=== PATIENT | female | born 1995 | race Two or more races ===

== ENCOUNTER 2024-11-08 17:12 | Inpatient (IN) | payer OTHER ==
[~2024-11-08] VITALS: Ht 165.1 cm; Wt 100.2 kg
[2024-11-08] MEDS ORDERED: ONDANSETRON HCL/PF 4 MG/2 ML VIAL ONE (17:18)
[2024-11-08] MEDS: ONDANSETRON HCL/PF - ER 4 MG/2 ML VIAL IV ONE (17:22)
[2024-11-08 17:40] LABS: RED BLOOD CELL COUNT(AUTO) 2.04 MIL/uL (4.0-5.2); RED CELL DISTRIBUTION WIDTH 20.8 % (11.5-15.0); WHITE BLOOD COUNT (AUTO) 10.1 K/uL (4.3-11.0)
[2024-11-08 17:49] LABS: CALCIUM, SERUM 7.5 mg/dL (8.5-10.1); CREATININE 0.6 mg/dL (0.6-1.3); SODIUM SERUM 142 mmol/L (136-145); UREA NITROGEN, BLOOD 1 mg/dL (7-18)
[2024-11-08 17:51] LABS: SERUM AMMONIA 52 umol/L (11-32)
[2024-11-08 18:00] LABS: ALCOHOL, BLOOD 330 mg/dL (0-10); ASPARTATE AMINOTRANSFERASE 136 U/L (15-37); TOTAL PROTEIN, SERUM 6.3 g/dL (6.4-8.2)
[2024-11-08 18:12] LABS: PLATELET COUNT (AUTO) 94 K/uL (150-450)
[2024-11-08 18:16] LABS: BAND % (MANUAL) 3 % (0.0-5.0); EOSINOPHILS % (MANUAL) 1 % (0-4); LYMPHOCYTES % (MANUAL) 11 % (16-48); MONOCYTES % (MANUAL) 4 % (0-11.0); NEUTROPHILS % (MANUAL) 81 (42-76)
[2024-11-08 18:25] LABS: INR > 10.00 (0.91-1.10)
[2024-11-08] MEDS ORDERED: OCTREOTIDE 1,250 MCG in IV NS 0.9% 250 ML IV ONE (18:30)
[2024-11-08] MEDS ORDERED: POTASSIUM CL. PREMIX PERIPHER. 50 ML ONE ×3 (18:33→20:43)
[2024-11-08] MEDS ORDERED: OCTREOTIDE 50 MCG/ML AMPUL ONE (18:34)
[2024-11-08] MEDS: POTASSIUM CL. PREMIX PERIPHER. 50 ML IV SCH (18:47)
[2024-11-08] MEDS: OCTREOTIDE 50 MCG/ML AMPUL IV ONE (18:48)
[2024-11-08] MEDS: PANTOPRAZOLE 80 MG in IV NS 0.9% 100 ML IV ONE (19:07)
[2024-11-08] MEDS ORDERED: ONDANSETRON HCL/PF 4 MG/2 ML VIAL IVP PRN (19:30)
[2024-11-08] MEDS ORDERED: Z GUARD REMEDY 4 OZ OINT TP PRN (19:30)
[2024-11-08] MEDS: PANTOPRAZOLE 80 MG in IV NS 0.9% 500 ML IV ONE (19:30)
[2024-11-08] MEDS: OCTREOTIDE 1,250 MCG in IV NS 0.9% 247.5 ML IV SCH (19:33)
[2024-11-08] MEDS ORDERED: PHYTONADIONE INJ 1 MG/0.5 ML AMPUL ONE (19:39)
[2024-11-08] MEDS: PHYTONADIONE INJ 1 MG/0.5 ML AMPUL SQ ONE (19:45)
[2024-11-08 20:44] LABS: APPEARANCE,URINE SLIGHTLY CLOUDY (CLEAR); BLOOD, URINE 1+ Ery/uL (NEGATIVE); LEUKOCYTE ESTERASE ,URINE NEGATIVE (NEGATIVE); NITRITE, URINE POSITIVE (NEGATIVE); UGLUCOSE TRACE mg/dL (NEGATIVE)
[2024-11-08 20:49] LABS: PREGNANCY TEST URINE QUAL NEGATIVE (NEGATIVE)
[2024-11-08 20:53] LABS: ADD URINE CULTURE YES; SQUAMOUS EPITHELIAL CELL,UR 0-2 /HPF (None Seen)
[2024-11-08 20:54] LABS: COARSE GRANULAR CASTS,URINE Few /LPF (None Seen)
[2024-11-08] MEDS ORDERED: LORAZEPAM INJ 2 MG/ML VIAL ONE (20:54)
[2024-11-08] MEDS: LORAZEPAM INJ 2 MG/ML VIAL IV PRN (20:58)
[2024-11-08 20:59] LABS: AMPHETAMINE, URINE NEGATIVE (NEGATIVE); CANNABINOID, URINE NEGATIVE (NEGATIVE); COCCAINE, URINE NEGATIVE (NEGATIVE); OPIATE, URINE NEGATIVE (NEGATIVE)
[2024-11-08 21:00] LABS: BARBITURATE, URINE POSITIVE (NEGATIVE); BENZODIAZEPINE, URINE POSITIVE (NEGATIVE)
[2024-11-08 21:35] VITALS: BP 107/51; O2SAT 99
[2024-11-08] MEDS: IV D5/ 0.9% NACL 1,000 ML IV PRN (21:37)
[2024-11-08 22:00] VITALS: BP 111/44; O2SAT 100
[2024-11-08 23:00] VITALS: BP 104/44; O2SAT 99
[2024-11-08] MEDS: PANTOPRAZOLE 40 MG VIAL ONE (23:43)
[2024-11-08] MEDS ORDERED: OCTREOTIDE 500 MCG/ML VIAL ONE ×2 (23:50→23:53)
[2024-11-09] VITALS (42 sets, daily range): BP systolic 92–150; BP diastolic 47–73; TEMP 97.8–99.8; O2SAT 93–100
[2024-11-09] MEDS: Thiamine 100 MG in IV D5W 50 ML IV SCH (00:36)
[2024-11-09] MEDS: OCTREOTIDE 1,250 MCG in IV NS 0.9% 247.5 ML IV SCH ×2 (01:14→09:11)
[2024-11-09 04:57] LABS: CALCIUM, SERUM 7.7 mg/dL (8.5-10.1); CREATININE 0.6 mg/dL (0.6-1.3); PHOSPHORUS 3.7 mg/dL (2.5-4.9); SODIUM SERUM 143.0 mmol/L (136-145); UREA NITROGEN, BLOOD 2.0 mg/dL (7-18)
[2024-11-09 05:07] LABS: PLATELET COUNT (AUTO) 84 K/uL (150-450); RED CELL DISTRIBUTION WIDTH 21.9 % (11.5-15.0); WHITE BLOOD COUNT (AUTO) 8.1 K/uL (4.3-11.0)
[2024-11-09 05:15] LABS: RED BLOOD CELL COUNT(AUTO) 1.95 MIL/uL (4.0-5.2)
[2024-11-09] MEDS: PANTOPRAZOLE 80 MG in IV NS 0.9% 500 ML IV PRN (05:22)
[2024-11-09 05:40] LABS: EOSINOPHILS % (MANUAL) 1 % (0-4); LYMPHOCYTES % (MANUAL) 21 % (16-48); MONOCYTES % (MANUAL) 6 % (0-11.0); NEUTROPHILS % (MANUAL) 72 (42-76); PLATELET ESTIMATE DECREASED
[2024-11-09 05:49] LABS: INR > 10.00 (0.91-1.10)
[2024-11-09] MEDS: PANTOPRAZOLE 80 MG in IV NS 0.9% 500 ML IV SCH (06:27)
[2024-11-09] MEDS ORDERED: PHYTONADIONE IV ONE (07:00)
[2024-11-09] MEDS ORDERED: D5W IV ONE (07:00)
[2024-11-09] MEDS: POTASSIUM CL. PREMIX PERIPHER. 50 ML IV SCH (08:44)
[2024-11-09] MEDS: PHYTONADIONE INJ 10 MG/1 ML AMPUL SQ ONE (08:46)
[2024-11-09] MEDS: CEFTRIAXONE 1 G in IV D5W 50 ML IV SCH (09:10)
[2024-11-09 10:12] LABS: IRON, SERUM 95 ug/dl (50-175)
[2024-11-09] MEDS ORDERED: PHYTONADIONE 10 MG in IV D5W 50 ML SQ ONE (15:30)
[2024-11-09] MEDS: PANTOPRAZOLE 40 MG VIAL IV SCH (21:09)
[2024-11-10] VITALS (57 sets, daily range): BP systolic 84–155; BP diastolic 53–83; TEMP 97.9–99.3; O2SAT 97–100
[2024-11-10] MEDS ORDERED: LACTULOSE 10 G/15 ML UDC (PYXIS) PO PRN (09:00)
[2024-11-10] MEDS: LACTULOSE 10 G/15 ML UDC (PYXIS) PO SCH (09:18)
[2024-11-10] MEDS: RIFAXIMIN 550 MG TABLET PO SCH (09:18)
[2024-11-10 10:26] LABS: SERUM AMMONIA 60.0 umol/L (11-32)
[2024-11-10 10:27] LABS: RED CELL DISTRIBUTION WIDTH 21.7 % (11.5-15.0); WHITE BLOOD COUNT (AUTO) 6.7 K/uL (4.3-11.0)
[2024-11-10 10:29] LABS: RED BLOOD CELL COUNT(AUTO) 1.68 MIL/uL (4.0-5.2)
[2024-11-10 10:30] LABS: ASPARTATE AMINOTRANSFERASE 114.0 U/L (15-37); TOTAL PROTEIN, SERUM 5.9 g/dL (6.4-8.2)
[2024-11-10 10:31] LABS: PLATELET COUNT (AUTO) 81 K/uL (150-450)
[2024-11-10 10:40] LABS: INR 1.93 (0.91-1.10)
[2024-11-10 10:45] LABS: FIBRINOGEN ACTIVITY 61.0 Mg/dL (213-485); LYMPHOCYTES % (MANUAL) 15 % (16-48); MONOCYTES % (MANUAL) 7 % (0-11.0); NEUTROPHILS % (MANUAL) 78 (42-76)
[2024-11-10 10:46] LABS: PLATELET ESTIMATE DECREASED
[2024-11-10] MEDS: FOLIC ACID 1 MG TABLET PO SCH (12:15)
[2024-11-10] MEDS: ACETAMINOPHEN 325 MG TABLET PO ONE (12:16)
[2024-11-10 12:19] LABS: RHEUMATOID FACTOR SCREEN POSITIVE (NEGATIVE)
[2024-11-11] VITALS (13 sets, daily range): BP systolic 118–131; BP diastolic 64–73; TEMP 98.1–99.9; O2SAT 95–98
[2024-11-11 04:08] LABS: HEPATITIS B CORE AB, IgM Negative (Negative); HEPATITIS B SURFACE AB (QUAL) Reactive (.); IMMUNOGLOBULIN A, SERUM 693 mg/dL (87-352); IMMUNOGLOBULIN M, SERUM 417 mg/dL (26-217)
[2024-11-11 06:10] LABS: FREE KAPPA LT CHAINS SERUM 34.9 mg/L (3.3-19.4); FREE LAMBDA LT CHAIN SERUM 39.9 mg/L (5.7-26.3); KAPPA/LAMBDA RATIO SERUM 0.87 (0.26-1.65)
[2024-11-11 08:07] LABS: FOLIC ACID 5.2 ng/mL (>3.0)
[2024-11-11] MEDS: LACTULOSE 10 G/15 ML UDC (PYXIS) PO SCH (09:09)
[2024-11-11 09:41] LABS: PLATELET COUNT (AUTO) 80 K/uL (150-450); RED CELL DISTRIBUTION WIDTH 27.6 % (11.5-15.0); WHITE BLOOD COUNT (AUTO) 5.7 K/uL (4.3-11.0)
[2024-11-11 09:50] LABS: RED BLOOD CELL COUNT(AUTO) 1.98 MIL/uL (4.0-5.2)
[2024-11-11 10:05] LABS: EOSINOPHILS % (MANUAL) 2 % (0-4); LYMPHOCYTES % (MANUAL) 18 % (16-48); MONOCYTES % (MANUAL) 6 % (0-11.0); NEUTROPHILS % (MANUAL) 74 (42-76); PLATELET ESTIMATE DECREASED
[2024-11-11 10:06] LABS: INR 2.15 (0.91-1.10)
[2024-11-11 10:11] LABS: *ANA ANTI-CENTROMERE B AB <0.2 AI (0.0-0.9); *ANA ANTI-DNA(DS) AB, QN 4 IU/mL (0-9); *ANA ANTI-JO-1 <0.2 AI (0.0-0.9); *ANA ANTICHROMATIN ANTIBODY <0.2 AI (0.0-0.9); *ANA RNP ANTIBODIES 0.2 AI (0.0-0.9); *ANA SJOGREN'S ANTI-SS-A <0.2 AI (0.0-0.9); *ANA SJOGREN'S ANTI-SS-B <0.2 AI (0.0-0.9); *ANAANTI-SCLERODERMA-70 AB <0.2 AI (0.0-0.9); *ANASMITH AB <0.2 AI (0.0-0.9)
[2024-11-11 10:13] LABS: ASPARTATE AMINOTRANSFERASE 101.0 U/L (15-37); CALCIUM, SERUM 7.4 mg/dL (8.5-10.1); CREATININE 0.6 mg/dL (0.6-1.3); SODIUM SERUM 145.0 mmol/L (136-145); TOTAL PROTEIN, SERUM 5.6 g/dL (6.4-8.2); UREA NITROGEN, BLOOD 2.0 mg/dL (7-18)
[2024-11-11 10:14] LABS: FIBRINOGEN ACTIVITY 100.0 Mg/dL (213-485)
[2024-11-11] MEDS: THIAMINE HCL 100 MG TABLET PO SCH (10:21)
[2024-11-11] MEDS: Calcium Gluconate 1GM/10ML 9.3 MEQ in IV NS 0.9% 100 ML IV ONE (11:47)
[2024-11-11] MEDS: POTASSIUM CL. PREMIX PERIPHER. 50 ML IV SCH (12:27)
[2024-11-11] MEDS: LORAZEPAM 1 MG TABLET PO PRN (18:16)
[2024-11-11 23:16] LABS: OCCULT BLOOD STOOL NEGATIVE (NEGATIVE)
[2024-11-12] VITALS: BP 136/71; TEMP 99.5; O2SAT 96
[2024-11-12 04:00] VITALS: BP 132/69; TEMP 98.8; O2SAT 97
[2024-11-12 06:46] LABS: PLATELET COUNT (AUTO) 78 K/uL (150-450); RED CELL DISTRIBUTION WIDTH 28.3 % (11.5-15.0); WHITE BLOOD COUNT (AUTO) 5.9 K/uL (4.3-11.0)
[2024-11-12 07:00] LABS: ASPARTATE AMINOTRANSFERASE 94.0 U/L (15-37); CALCIUM, SERUM 7.9 mg/dL (8.5-10.1); CREATININE 0.6 mg/dL (0.6-1.3); PHOSPHORUS 2.0 mg/dL (2.5-4.9); SODIUM SERUM 145.0 mmol/L (136-145); TOTAL PROTEIN, SERUM 5.7 g/dL (6.4-8.2); UREA NITROGEN, BLOOD 2.0 mg/dL (7-18)
[2024-11-12 07:03] LABS: FIBRINOGEN ACTIVITY 131.0 Mg/dL (213-485); INR 2.37 (0.91-1.10)
[2024-11-12 07:29] LABS: RED BLOOD CELL COUNT(AUTO) 1.91 MIL/uL (4.0-5.2)
[2024-11-12] MEDS ORDERED: POTASSIUM PHOSPHATE MM 15 MMOL in IV NS 0.9% 250 ML IV SCH (09:00)
[2024-11-12] MEDS: POTASSIUM PHOSPHATE MM 7.5 MMOL in IV NS 0.9% 100 ML IV SCH (09:29)
[2024-11-12] MEDS: CYANOCOBALAMIN 1,000 MCG/ML VIAL IM SCH (09:43)
[2024-11-12 12:27] LABS: EOSINOPHILS % (MANUAL) 1 % (0-4); LYMPHOCYTES % (MANUAL) 15 % (16-48); MONOCYTES % (MANUAL) 6 % (0-11.0); NEUTROPHILS % (MANUAL) 78 (42-76); PLATELET ESTIMATE DECREASED
[2024-11-12 13:29] VITALS: BP 134/68; TEMP 99.1; O2SAT 95
[2024-11-12 16:00] VITALS: BP 117/63; TEMP 97.1; O2SAT 96
[2024-11-12 20:00] VITALS: BP 130/67; TEMP 97.9; O2SAT 97
[2024-11-12] MEDS: LACTULOSE 10 G/15 ML UDC (PYXIS) PO SCH (20:11)
[2024-11-12] MEDS: RIFAXIMIN 550 MG TABLET PO SCH (20:14)
[2024-11-13] VITALS: BP 130/69; TEMP 99.3; O2SAT 98
[2024-11-13 04:00] VITALS: BP 126/73; TEMP 98.4; O2SAT 97
[2024-11-13 06:31] LABS: ASPARTATE AMINOTRANSFERASE 87.0 U/L (15-37); CALCIUM, SERUM 7.4 mg/dL (8.5-10.1); CREATININE 0.6 mg/dL (0.6-1.3); PHOSPHORUS 1.5 mg/dL (2.5-4.9); SODIUM SERUM 142.0 mmol/L (136-145); TOTAL PROTEIN, SERUM 5.3 g/dL (6.4-8.2); UREA NITROGEN, BLOOD 2.0 mg/dL (7-18)
[2024-11-13 06:40] LABS: PLATELET COUNT (AUTO) 84 K/uL (150-450); RED CELL DISTRIBUTION WIDTH 28.4 % (11.5-15.0); WHITE BLOOD COUNT (AUTO) 6.4 K/uL (4.3-11.0)
[2024-11-13 06:45] LABS: INR 2.71 (0.91-1.10)
[2024-11-13 06:47] LABS: FIBRINOGEN ACTIVITY 103.0 Mg/dL (213-485)
[2024-11-13 06:59] LABS: RED BLOOD CELL COUNT(AUTO) 1.89 MIL/uL (4.0-5.2)
[2024-11-13 08:00] VITALS: BP 129/71; TEMP 98.8; O2SAT 96
[2024-11-13] MEDS: POTASSIUM PHOSPHATE MM 7.5 MMOL in IV NS 0.9% 100 ML IV SCH (09:47)
[2024-11-13] MEDS ORDERED: POTASSIUM CHLORIDE 20 MEQ TAB.PRT.SR PO SCH (10:00)
[2024-11-13 10:48] LABS: LYMPHOCYTES % (MANUAL) 15 % (16-48); MONOCYTES % (MANUAL) 3 % (0-11.0); NEUTROPHILS % (MANUAL) 82 (42-76); PLATELET ESTIMATE DECREASED
[2024-11-13 12:00] VITALS: BP 132/68; TEMP 99; O2SAT 97
[2024-11-13 16:00] VITALS: BP 115/63; TEMP 98.4; O2SAT 98
[2024-11-13 20:00] VITALS: BP 133/72; TEMP 98.6; O2SAT 99
[2024-11-14] VITALS (21 sets, daily range): BP systolic 117–133; BP diastolic 60–97; TEMP 98–99.9; O2SAT 96–99
[2024-11-14 07:33] LABS: PLATELET COUNT (AUTO) 91 K/uL (150-450); RED CELL DISTRIBUTION WIDTH 28.2 % (11.5-15.0); WHITE BLOOD COUNT (AUTO) 6.1 K/uL (4.3-11.0)
[2024-11-14 07:37] LABS: RED BLOOD CELL COUNT(AUTO) 1.82 MIL/uL (4.0-5.2)
[2024-11-14 07:42] LABS: FIBRINOGEN ACTIVITY 123.0 Mg/dL (213-485); INR 2.53 (0.91-1.10)
[2024-11-14 08:02] LABS: ASPARTATE AMINOTRANSFERASE 81.0 U/L (15-37); CALCIUM, SERUM 7.2 mg/dL (8.5-10.1); CREATININE 0.6 mg/dL (0.6-1.3); PHOSPHORUS 1.9 mg/dL (2.5-4.9); SODIUM SERUM 142.0 mmol/L (136-145); TOTAL PROTEIN, SERUM 5.4 g/dL (6.4-8.2); UREA NITROGEN, BLOOD 1.0 mg/dL (7-18)
[2024-11-14] MEDS: POTASSIUM PHOSPHATE MM 7.5 MMOL in IV NS 0.9% 100 ML IV SCH (10:03)
[2024-11-14] MEDS: Calcium Gluconate 1GM/10ML 9.3 MEQ in IV NS 0.9% 100 ML IV ONE (10:03)
[2024-11-14 10:13] LABS: EOSINOPHILS % (MANUAL) 2 % (0-4); LYMPHOCYTES % (MANUAL) 25 % (16-48); MONOCYTES % (MANUAL) 8 % (0-11.0); NEUTROPHILS % (MANUAL) 65 (42-76)
[2024-11-14 10:14] LABS: PLATELET ESTIMATE DECREASED
[2024-11-15] VITALS: BP 119/60; TEMP 98.4; O2SAT 96
[2024-11-15 04:00] VITALS: BP 112/60; TEMP 99; O2SAT 99
[2024-11-15 07:36] LABS: FIBRINOGEN ACTIVITY 127.0 Mg/dL (213-485); INR 2.85 (0.91-1.10)
[2024-11-15 07:38] LABS: ASPARTATE AMINOTRANSFERASE 78.0 U/L (15-37); CALCIUM, SERUM 7.3 mg/dL (8.5-10.1); CREATININE 0.7 mg/dL (0.6-1.3); PHOSPHORUS 3.2 mg/dL (2.5-4.9); SODIUM SERUM 140.0 mmol/L (136-145); TOTAL PROTEIN, SERUM 5.6 g/dL (6.4-8.2); UREA NITROGEN, BLOOD 3.0 mg/dL (7-18)
[2024-11-15 08:00] VITALS: BP 125/66; TEMP 98.8; O2SAT 99
[2024-11-15] MEDS: ALBUMIN 25% 25 GM in PREMIX 1 EA IV SCH (08:51)
[2024-11-15] MEDS: POTASSIUM CHLORIDE 20 MEQ TAB.PRT.SR PO SCH (08:55)
[2024-11-15] MEDS: FUROSEMIDE 40 MG/4 ML VIAL IV ONE (08:56)
[2024-11-15] MEDS: FUROSEMIDE 20 MG TABLET PO SCH (08:56)
[2024-11-15] MEDS: SPIRONOLACTONE 25 MG TABLET PO SCH (08:56)
[2024-11-15] MEDS: Calcium Gluconate 1GM/10ML 9.3 MEQ in IV NS 0.9% 100 ML IV ONE (10:03)
[2024-11-15 11:51] LABS: CALCIUM, SERUM 7.5 mg/dL (8.5-10.1); CREATININE 0.7 mg/dL (0.6-1.3); SODIUM SERUM 140.0 mmol/L (136-145); UREA NITROGEN, BLOOD 2.0 mg/dL (7-18)
[2024-11-15 12:00] VITALS: BP 128/65; TEMP 98.6; O2SAT 94
[2024-11-15 12:06] LABS: ASPARTATE AMINOTRANSFERASE 79.0 U/L (15-37); TOTAL PROTEIN, SERUM 5.8 g/dL (6.4-8.2)
[2024-11-15 16:00] VITALS: BP 125/70; TEMP 97.9; O2SAT 96
[2024-11-15 20:00] VITALS: BP 125/67; TEMP 97.9; O2SAT 97
[2024-11-16] VITALS (15 sets, daily range): BP systolic 110–129; BP diastolic 60–80; TEMP 97.5–98.4; O2SAT 96–99
[2024-11-16 08:04] LABS: INR 3.28 (0.91-1.10)
[2024-11-16 08:06] LABS: PLATELET COUNT (AUTO) 122 K/uL (150-450); RED BLOOD CELL COUNT(AUTO) 2.33 MIL/uL (4.0-5.2); RED CELL DISTRIBUTION WIDTH 30.2 % (11.5-15.0); WHITE BLOOD COUNT (AUTO) 8.0 K/uL (4.3-11.0)
[2024-11-16 08:13] LABS: FIBRINOGEN ACTIVITY 91.0 Mg/dL (213-485)
[2024-11-16 08:15] LABS: ASPARTATE AMINOTRANSFERASE 56.0 U/L (15-37); CALCIUM, SERUM 7.4 mg/dL (8.5-10.1); CREATININE 0.7 mg/dL (0.6-1.3); PHOSPHORUS 2.8 mg/dL (2.5-4.9); SODIUM SERUM 140.0 mmol/L (136-145); TOTAL PROTEIN, SERUM 5.7 g/dL (6.4-8.2); UREA NITROGEN, BLOOD 5.0 mg/dL (7-18)
[2024-11-16] MEDS: ACETAMINOPHEN 325 MG TABLET PO ONE (09:34)
[2024-11-16] MEDS: ALBUMIN 25% 25 GM in PREMIX 1 EA IV SCH (14:35)
[2024-11-16 19:02] LABS: ASPARTATE AMINOTRANSFERASE 54.0 U/L (15-37); CALCIUM, SERUM 7.5 mg/dL (8.5-10.1); CREATININE 0.7 mg/dL (0.6-1.3); SODIUM SERUM 138.0 mmol/L (136-145); TOTAL PROTEIN, SERUM 6.1 g/dL (6.4-8.2); UREA NITROGEN, BLOOD 6.0 mg/dL (7-18)
[2024-11-17] VITALS (10 sets, daily range): BP systolic 106–132; BP diastolic 54–89; TEMP 97.5–98.4; O2SAT 95–98
[2024-11-17 07:24] LABS: PLATELET COUNT (AUTO) 123 K/uL (150-450); RED BLOOD CELL COUNT(AUTO) 2.25 MIL/uL (4.0-5.2); RED CELL DISTRIBUTION WIDTH 28.6 % (11.5-15.0); WHITE BLOOD COUNT (AUTO) 6.5 K/uL (4.3-11.0)
[2024-11-17 07:27] LABS: INR 2.73 (0.91-1.10)
[2024-11-17 08:29] LABS: FIBRINOGEN ACTIVITY 94 Mg/dL (213-485)
[2024-11-17] MEDS: ESCITALOPRAM OXALATE (10 MG) 10 MG TABLET PO SCH (08:40)
[2024-11-17 09:11] LABS: ASPARTATE AMINOTRANSFERASE 47.0 U/L (15-37); CALCIUM, SERUM 7.3 mg/dL (8.5-10.1); CREATININE 0.6 mg/dL (0.6-1.3); PHOSPHORUS 2.2 mg/dL (2.5-4.9); SODIUM SERUM 139.0 mmol/L (136-145); TOTAL PROTEIN, SERUM 5.5 g/dL (6.4-8.2); UREA NITROGEN, BLOOD 8.0 mg/dL (7-18)
[2024-11-17] MEDS: K PHOS NEUTRAL 250 MG TABLET PO ONE (16:49)
[2024-11-18] VITALS: BP 117/71; TEMP 98; O2SAT 98
[2024-11-18 04:00] VITALS: BP 125/74; TEMP 98.2; O2SAT 98
[2024-11-18 06:44] LABS: PLATELET COUNT (AUTO) 132 K/uL (150-450); RED BLOOD CELL COUNT(AUTO) 2.31 MIL/uL (4.0-5.2); RED CELL DISTRIBUTION WIDTH 27.6 % (11.5-15.0); WHITE BLOOD COUNT (AUTO) 7.7 K/uL (4.3-11.0)
[2024-11-18 07:01] LABS: FIBRINOGEN ACTIVITY 121 Mg/dL (213-485); INR 2.64 (0.91-1.10)
[2024-11-18 07:22] LABS: ASPARTATE AMINOTRANSFERASE 51.0 U/L (15-37); CALCIUM, SERUM 7.6 mg/dL (8.5-10.1); CREATININE 0.5 mg/dL (0.6-1.3); SODIUM SERUM 137.0 mmol/L (136-145); TOTAL PROTEIN, SERUM 5.8 g/dL (6.4-8.2); UREA NITROGEN, BLOOD 7.0 mg/dL (7-18)
[2024-11-18 08:00] VITALS: BP 121/68; TEMP 97.9; O2SAT 98
[2024-11-18] MEDS: PANTOPRAZOLE 40 MG TABLET.DR PO SCH (09:21)
[2024-11-18 12:00] VITALS: BP 127/76; TEMP 97.7; O2SAT 98
[2024-11-18 16:00] VITALS: BP 128/68; TEMP 97.9; O2SAT 98
[2024-11-18 20:00] VITALS: BP 132/82; TEMP 97.9; O2SAT 96
[2024-11-19] VITALS (12 sets, daily range): BP systolic 115–130; BP diastolic 60–76; TEMP 97.7–99; O2SAT 95–98
[2024-11-19 08:42] LABS: PLATELET COUNT (AUTO) 171 K/uL (150-450); RED BLOOD CELL COUNT(AUTO) 2.64 MIL/uL (4.0-5.2); RED CELL DISTRIBUTION WIDTH 26.4 % (11.5-15.0); WHITE BLOOD COUNT (AUTO) 12.0 K/uL (4.3-11.0)
[2024-11-19 08:53] LABS: CALCIUM, SERUM 7.9 mg/dL (8.5-10.1); CREATININE 0.5 mg/dL (0.6-1.3); SODIUM SERUM 137.0 mmol/L (136-145); UREA NITROGEN, BLOOD 8.0 mg/dL (7-18)
[2024-11-19 09:05] LABS: INR 2.85 (0.91-1.10)
[2024-11-19 09:07] LABS: ASPARTATE AMINOTRANSFERASE 60.0 U/L (15-37); TOTAL PROTEIN, SERUM 6.1 g/dL (6.4-8.2)
[2024-11-19 09:19] LABS: FIBRINOGEN ACTIVITY 82 Mg/dL (213-485)
[2024-11-19] MEDS: PHYTONADIONE INJ 10 MG/1 ML AMPUL SQ ONE (14:23)
[2024-11-20] VITALS (10 sets, daily range): BP systolic 115–128; BP diastolic 59–77; TEMP 97.1–99; O2SAT 95–97
[2024-11-20 06:58] LABS: PLATELET COUNT (AUTO) 164 K/uL (150-450); RED BLOOD CELL COUNT(AUTO) 2.48 MIL/uL (4.0-5.2); RED CELL DISTRIBUTION WIDTH 25.5 % (11.5-15.0); WHITE BLOOD COUNT (AUTO) 14.0 K/uL (4.3-11.0)
[2024-11-20 08:34] LABS: INR 2.75 (0.91-1.10)
[2024-11-20 08:49] LABS: FIBRINOGEN ACTIVITY 98 Mg/dL (213-485)
[2024-11-20 08:52] LABS: CALCIUM, SERUM 7.8 mg/dL (8.5-10.1); CREATININE 0.6 mg/dL (0.6-1.3); SODIUM SERUM 135.0 mmol/L (136-145); TOTAL PROTEIN, SERUM 5.9 g/dL (6.4-8.2); UREA NITROGEN, BLOOD 11.0 mg/dL (7-18)
[2024-11-20 10:14] LABS: ASPARTATE AMINOTRANSFERASE 155.0 U/L (15-37)
[2024-11-20 12:49] LABS: LYMPHOCYTES % (MANUAL) 11 % (16-48); MONOCYTES % (MANUAL) 3 % (0-11.0); NEUTROPHILS % (MANUAL) 86 (42-76)
[2024-11-20 13:10] LABS: PLATELET ESTIMATE ADEQUATE
[2024-11-21] VITALS: BP 123/67; TEMP 98.2; O2SAT 98
[2024-11-21 04:00] VITALS: BP 119/64; TEMP 98.4; O2SAT 99
[2024-11-21 08:00] VITALS: BP 120/66; TEMP 97.8; O2SAT 96
[2024-11-21 08:10] LABS: PLATELET COUNT (AUTO) 154 K/uL (150-450); RED BLOOD CELL COUNT(AUTO) 2.48 MIL/uL (4.0-5.2); RED CELL DISTRIBUTION WIDTH 25.3 % (11.5-15.0); WHITE BLOOD COUNT (AUTO) 14.9 K/uL (4.3-11.0)
[2024-11-21 08:37] LABS: FIBRINOGEN ACTIVITY 103.0 Mg/dL (213-485); INR 2.6 (0.91-1.10)
[2024-11-21 08:38] LABS: ASPARTATE AMINOTRANSFERASE 48.0 U/L (15-37); CALCIUM, SERUM 8.0 mg/dL (8.5-10.1); CREATININE 0.7 mg/dL (0.6-1.3); SODIUM SERUM 138.0 mmol/L (136-145); TOTAL PROTEIN, SERUM 5.7 g/dL (6.4-8.2); UREA NITROGEN, BLOOD 13.0 mg/dL (7-18)
[2024-11-21 12:00] VITALS: BP 118/68; TEMP 98.2; O2SAT 96
[2024-11-21 12:48] LABS: BAND % (MANUAL) 2 % (0.0-5.0); LYMPHOCYTES % (MANUAL) 1 % (16-48); MONOCYTES % (MANUAL) 3 % (0-11.0); MYELOCYTES % 3 % (0-0); NEUTROPHILS % (MANUAL) 91 (42-76); PLATELET ESTIMATE ADEQUATE
[2024-11-21 16:00] VITALS: BP 137/73; TEMP 97.9; O2SAT 96
[2024-11-21 20:00] VITALS: BP 139/82; TEMP 98.2; O2SAT 98
[2024-11-22] VITALS (13 sets, daily range): BP systolic 128–143; BP diastolic 71–82; TEMP 97.3–98.4; O2SAT 96–99
[2024-11-22 07:50] LABS: INR 2.75 (0.91-1.10); PLATELET COUNT (AUTO) 157 K/uL (150-450); RED BLOOD CELL COUNT(AUTO) 2.44 MIL/uL (4.0-5.2); RED CELL DISTRIBUTION WIDTH 24.8 % (11.5-15.0); WHITE BLOOD COUNT (AUTO) 16.0 K/uL (4.3-11.0)
[2024-11-22 08:02] LABS: FIBRINOGEN ACTIVITY 77.0 Mg/dL (213-485)
[2024-11-22 08:12] LABS: ASPARTATE AMINOTRANSFERASE 60.0 U/L (15-37); CALCIUM, SERUM 8.1 mg/dL (8.5-10.1); CREATININE 0.6 mg/dL (0.6-1.3); SODIUM SERUM 136.0 mmol/L (136-145); TOTAL PROTEIN, SERUM 5.7 g/dL (6.4-8.2); UREA NITROGEN, BLOOD 11.0 mg/dL (7-18)
[2024-11-22] MEDS: FUROSEMIDE 20 MG TABLET PO SCH (09:50)
[2024-11-22] MEDS: SPIRONOLACTONE 25 MG TABLET PO SCH (09:50)
[2024-11-22 11:34] LABS: LYMPHOCYTES % (MANUAL) 6 % (16-48); MONOCYTES % (MANUAL) 6 % (0-11.0); MYELOCYTES % 2 % (0-0); NEUTROPHILS % (MANUAL) 86 (42-76); PLATELET ESTIMATE ADEQUATE
[2024-11-23] VITALS (10 sets, daily range): BP systolic 115–138; BP diastolic 67–79; TEMP 97.4–98.6; O2SAT 95–98
[2024-11-23 06:57] LABS: PLATELET COUNT (AUTO) 136 K/uL (150-450); RED BLOOD CELL COUNT(AUTO) 2.35 MIL/uL (4.0-5.2); RED CELL DISTRIBUTION WIDTH 24.3 % (11.5-15.0); WHITE BLOOD COUNT (AUTO) 15.7 K/uL (4.3-11.0)
[2024-11-23 07:41] LABS: INR 2.68 (0.91-1.10)
[2024-11-23 08:26] LABS: FIBRINOGEN ACTIVITY 100.0 Mg/dL (213-485)
[2024-11-23 08:36] LABS: ASPARTATE AMINOTRANSFERASE 63.0 U/L (15-37); CALCIUM, SERUM 8.2 mg/dL (8.5-10.1); CREATININE 0.6 mg/dL (0.6-1.3); SODIUM SERUM 137.0 mmol/L (136-145); TOTAL PROTEIN, SERUM 5.7 g/dL (6.4-8.2); UREA NITROGEN, BLOOD 10.0 mg/dL (7-18)
[2024-11-23] MEDS: ALBUMIN 25% 25 GM in PREMIX 1 EA IV SCH (10:28)
[2024-11-23 11:43] LABS: APPEARANCE,URINE CLEAR (CLEAR); BLOOD, URINE NEGATIVE Ery/uL (NEGATIVE); LEUKOCYTE ESTERASE ,URINE NEGATIVE (NEGATIVE); NITRITE, URINE NEGATIVE (NEGATIVE); UGLUCOSE TRACE mg/dL (NEGATIVE)
[2024-11-23 13:17] LABS: ADD URINE CULTURE NO
[2024-11-23 13:23] LABS: LYMPHOCYTES % (MANUAL) 4 % (16-48); MONOCYTES % (MANUAL) 6 % (0-11.0); MYELOCYTES % 1 % (0-0); NEUTROPHILS % (MANUAL) 89 (42-76); PLATELET ESTIMATE DECREASED
[2024-11-24] VITALS: BP 134/68; TEMP 98.1; O2SAT 98
[2024-11-24 04:00] VITALS: BP 133/75; TEMP 97.7; O2SAT 96
[2024-11-24 07:27] LABS: PLATELET COUNT (AUTO) 134 K/uL (150-450); RED BLOOD CELL COUNT(AUTO) 2.27 MIL/uL (4.0-5.2); RED CELL DISTRIBUTION WIDTH 23.8 % (11.5-15.0); WHITE BLOOD COUNT (AUTO) 17.1 K/uL (4.3-11.0)
[2024-11-24 07:34] LABS: FIBRINOGEN ACTIVITY 119.0 Mg/dL (213-485); INR 2.6 (0.91-1.10)
[2024-11-24 07:56] LABS: CALCIUM, SERUM 8.6 mg/dL (8.5-10.1); CREATININE 0.5 mg/dL (0.6-1.3); PHOSPHORUS 2.4 mg/dL (2.5-4.9); SODIUM SERUM 139.0 mmol/L (136-145); UREA NITROGEN, BLOOD 12.0 mg/dL (7-18)
[2024-11-24 08:00] VITALS: BP 130/73; TEMP 97.7; O2SAT 98
[2024-11-24 09:17] LABS: ASPARTATE AMINOTRANSFERASE 52.0 U/L (15-37); TOTAL PROTEIN, SERUM 5.7 g/dL (6.4-8.2)
[2024-11-24 11:35] LABS: LYMPHOCYTES % (MANUAL) 1 % (16-48); MONOCYTES % (MANUAL) 3 % (0-11.0); NEUTROPHILS % (MANUAL) 96 (42-76); PLATELET ESTIMATE DECREASED
[2024-11-24 12:00] VITALS: BP 130/70; TEMP 97.9; O2SAT 97
[2024-11-24] MEDS ORDERED: PRED20TA PO (13:38)
[2024-11-24] MEDS ORDERED: FURO20TA4 PO (13:38)
[2024-11-24] MEDS ORDERED: SPIR25TA6 PO (13:38)
[2024-11-24] MEDS ORDERED: LACT10SO58 PO (13:38)
[2024-11-24] MEDS ORDERED: K PHOS NEUTRAL 250 MG TABLET PO ONE (17:00)
== END 2024-11-24 15:49 | disposition home or self-care (01) | DRG 253 ==
LOC: ER 17:21 → ICU 20:33 → TELE1 11-10 17:48
PROVIDERS: ADMIT Nurse Practitioner Acute Care
PROC: 30233K1 Transfusion of Nonautologous Frozen Plasma into Peripheral Vein, Percutaneous Approach (ICD-10-PCS; principal; 2024-11-08)
PROC: 30233M1 Transfusion of Nonautologous Plasma Cryoprecipitate into Peripheral Vein, Percutaneous Approach (ICD-10-PCS; 2024-11-10)
PROC: 30233N1 Transfusion of Nonautologous Red Blood Cells into Peripheral Vein, Percutaneous Approach (ICD-10-PCS; 2024-11-10)
PROC: 0W9G3ZX Drainage of Peritoneal Cavity, Percutaneous Approach, Diagnostic (ICD-10-PCS; 2024-11-16)
DX: K92.2 Gastrointestinal hemorrhage, unspecified (principal); D65 Disseminated intravascular coagulation [defibrination syndrome]; K70.40 Alcoholic hepatic failure without coma; G93.40 Encephalopathy, unspecified; D61.89 Other specified aplastic anemias and other bone marrow failure syndromes; E46 Unspecified protein-calorie malnutrition; D61.818 Other pancytopenia; D68.9 Coagulation defect, unspecified; E72.20 Disorder of urea cycle metabolism, unspecified; E88.09 Other disorders of plasma-protein metabolism, not elsewhere classified; I21.A1 Myocardial infarction type 2; K70.31 Alcoholic cirrhosis of liver with ascites; Y90.8 Blood alcohol level of 240 mg/100 ml or more; E87.6 Hypokalemia; R56.9 Unspecified convulsions; F41.9 Anxiety disorder, unspecified; F41.0 Panic disorder [episodic paroxysmal anxiety]; F10.10 Alcohol abuse, uncomplicated; E80.6 Other disorders of bilirubin metabolism; Z68.36 Body mass index [BMI] 36.0-36.9, adult; E66.9 Obesity, unspecified; X58.XXXA Exposure to other specified factors, initial encounter; Y92.9 Unspecified place or not applicable; S00.81XA Abrasion of other part of head, initial encounter; E53.8 Deficiency of other specified B group vitamins; D72.829 Elevated white blood cell count, unspecified; D53.9 Nutritional anemia, unspecified; Z91.148 Patient's other noncompliance with medication regimen for other reason; F32.A Depression, unspecified
CPT/HCPCS: 36415; 49083; 70450-TC; 71045-TC; 76604-TC; 76700-TC; 76705-TC; 80048-TC; 80053-TC; 80076-TC; 81001; 82140-TC; 82272-TC; 82607-TC; 82728-TC; 82784; 83540-TC; 83735-TC; 83880; 84100-TC; 84155; 84165; 84443-TC; 84484-TC; 84703-TC; 85025-TC; 85027-TC; 85385-TC; 85396; 85610-TC; 85730-TC; 86225; 86235; 86334; 86431-TC; 86705; 86706; 86803; 86850-TC; 87040-TC; 87081-TC; 87086-TC; 87340; 93307-TC; 98960; A4216; A4223; G0378; G0480; J0612; J0696; J1200; J1938; J2060; J2354; J2405; J2470; J3411; J3420; J3430; J3480; J3490; J7030; J7040; J7042; J7050; J7060; P9012; P9016; P9017; P9047